=== PATIENT | male | born 1950 | race Caucasian/White ===

== ENCOUNTER 2017-04-07 13:00 | Inpatient (IN) | payer MEDICARE, OTHER ==
[~2017-04-07] VITALS: Ht 175.3 cm; Wt 45.2 kg
[~2017-04-07 13:00] MED LIST: ASPIRIN E.C. 8181 MG PO; CENTRUM SILVER1 CTB PO; LIPITOR20 MG PO; NO HOME MEDICATIONS; OMEGA-31000 MG PO; PROAIR HFA0.09 MG/AC IH; RT ADVAIR 228 DISKUS IH; [UNRECOGNIZED DRUG - OTHER] PO
[2017-04-08] VITALS (107 sets, daily range): BP systolic 112–149; BP diastolic 55–77; PULSE 72–125; TEMP 98–98.9; O2SAT 60–68
[2017-04-08] MEDS ORDERED: ROXICODONE 55 MG/TAB PO (07:55)
[2017-04-08 19:03] LABS: ARTERIAL BLD GAS O2 SATURATION 74.7 % (92-100); ARTERIAL BLD GAS TCO2 CT 26.8; ARTERIAL BLOOD GAS BASE EXCESS 3.1 (-2-2); ARTERIAL BLOOD GAS HCO3 25.8 meq/L (22-26); ARTERIAL BLOOD GAS PCO2 32.9 mmHg (35-45); ARTERIAL BLOOD GAS pH 7.51 (7.35-7.45)
[2017-04-08 19:06] LABS: ARTERIAL BLOOD GAS PO2 37.5 mmHg (80-100)
[2017-04-08 19:38] LABS: BASO % 0.2 % (0.0-2.0); GRAN # 12.3 (1.4-6.5); GRAN % 80.4 % (42.2-75.2); LYMPH # 1.6 (1.2-3.4); LYMPH % 10.5 % (20.0-51.0); MEAN CELL VOLUME 91 fl (80.0-100.0); MEAN CORPUSCULAR HGB CONC 33 g/dl (33.0-37.0); MONO # 1.3 (0.1-0.6); MONO % 8.3 % (1.7-9.3); PLATELET COUNT 325 K/mm3 (130-400); RED BLOOD COUNT 3.62 M/mm3 (4.20-5.60); REDCELL DISTRIBUTION WIDTH-CV 14.5 % (11.5-14.5)
[2017-04-08 19:39] LABS: HEMATOCRIT 32.8 % (42.0-52.0); HEMOGLOBIN 10.8 g/dl (13.5-18.0); MEAN CORPUSCULAR HEMOGLOBIN 30 pg (27.0-31.0)
[2017-04-08 19:43] LABS: CALCIUM 9.3 mg/dL (8.4-10.2); CREATININE, serum 0.77 mg/dL (0.66-1.25); POTASSIUM 3.8 mmol/L (3.4-5.0)
[2017-04-09] VITALS (149 sets, daily range): BP systolic 90; BP diastolic 56; PULSE 180; TEMP 98; O2SAT 49–93
== END 2017-04-09 06:00 | disposition expired | DRG 981 ==
LOC: INPTSU 04-08 07:24 → SDCO 04-08 09:30 → EDSTATUS 04-08 09:30 → SURG 04-08 11:45 → ICU 04-08 19:30
PROVIDERS: Internal Medicine Pulmonary Disease; Surgery
PROC: 0BH18EZ Insertion of Endotracheal Airway into Trachea, Via Natural or Artificial Opening Endoscopic (ICD-10-PCS; 2017-04-08)
PROC: 5A1935Z Respiratory Ventilation, Less than 24 Consecutive Hours (ICD-10-PCS; 2017-04-08)
PROC: 0B968ZX Drainage of Right Lower Lobe Bronchus, Via Natural or Artificial Opening Endoscopic, Diagnostic (ICD-10-PCS; 2017-04-08)
PROC: 0B948ZX Drainage of Right Upper Lobe Bronchus, Via Natural or Artificial Opening Endoscopic, Diagnostic (ICD-10-PCS; 2017-04-08)
PROC: 0B958ZX Drainage of Right Middle Lobe Bronchus, Via Natural or Artificial Opening Endoscopic, Diagnostic (ICD-10-PCS; 2017-04-08)
PROC: 0DH60UZ Insertion of Feeding Device into Stomach, Open Approach (ICD-10-PCS; principal; 2017-04-08 09:30)
PROC: 0JH60WZ Insertion of Totally Implantable Vascular Access Device into Chest Subcutaneous Tissue and Fascia, Open Approach (ICD-10-PCS; 2017-04-08 09:30)
PROC: 02HV33Z Insertion of Infusion Device into Superior Vena Cava, Percutaneous Approach (ICD-10-PCS; 2017-04-08 09:30)
DX: E43 Unspecified severe protein-calorie malnutrition (principal); J96.01 Acute respiratory failure with hypoxia; C15.4 Malignant neoplasm of middle third of esophagus; C78.02 Secondary malignant neoplasm of left lung; Z68.1 Body mass index [BMI] 19.9 or less, adult; Z51.5 Encounter for palliative care; Z66 Do not resuscitate; J44.9 Chronic obstructive pulmonary disease, unspecified; I73.00 Raynaud's syndrome without gangrene; M47.892 Other spondylosis, cervical region; Z87.891 Personal history of nicotine dependence
CPT/HCPCS: 99223; A4314; B4087; C1788; J0171; J0690; J1644; J2270; J2704; J3010; J7050; J7120; Q9967